=== PATIENT | female | born 1945 ===

== ENCOUNTER 2017-05-19 18:53 | Emergency (ER) | payer MEDICARE, MEDICAID ==
[2017-05-19 19:23] VITALS: BP 127/59; PULSE 85; RESP 16; TEMP 99.7; O2SAT 100
[2017-05-19] MEDS ORDERED: TDAP Vaccine 0.5 mL Syr IM ONE (19:45)
[2017-05-19] MEDS ORDERED: Silver Sulfadiazine 1% CREAM (50 gm) TOP STA (19:45)
--- NOTE | 2017-05-19 19:58 | ED PDOC ---
HPI: General Adult Time Seen by Provider: 05/19/17 19:26 Chief Complaint (Nursing): Upper Extremity Problem/Injury History Per: Patient Additional Complaint(s): Pt. states yesterday she tripped and fell landing on her R shoulder. Pt. states she initially placed ice on the area which improved the pain. She took a percocet and decided to apply heat instead of the ice but fell asleep with the heating pad still on the arm. Pt. woke up this morning with a blister on the R upper arm. Of note, pt. states she popped the blister today and was able to express clear liquid. Denies head injury, neck pain, chest pain, fever, elbow pain, numbness, tingling, LOC, N/V. Against Medical Advice - AMA Patient Left Against Medical Advice: The patient declines admission to the hospital and wishes to leave the Emergency Department. This action is against my medical advice. This decision was made with informed refusal. The patient was told that admission to the hospital is necessary. Explanation of the reasons why were discussed. The risks of leaving were explained to the patient and include, but are not limited to, worsening of known or currently unknown conditions, permanent disability and from undiagnosed or untreated conditions. The patient has the capacity to make this informed decision and understands my explanation of the current medical problem and risks of leaving. The patient voluntarily accepts these risks and signed an AMA form documenting our conversation. The patient was given the opportunity to ask questions and reconsider. The patient was encouraged to return to the Emergency Department at any time for further care. 05/19/17 21:13 Shoulder x-ray: ? non-displaced humerus fx vs. calcific tendinitis; no dislocation Pt. was informed that CT would be required in order to determine extent of injury but pt. refused and states she will f/u with her PMD instead. Pt. was urged to stay in ED for CT but refused even at the recommendation of her daughter. This as done using cigarette tester [id number]. Shoulder sling immobilized in sling. Past Medical History Reviewed: Historical Data, Nursing Documentation, Vital Signs Vital Signs: Last Vital Signs Temp 99.7 F H 05/19/17 19:19 Pulse 85 05/19/17 19:19 Resp 16 05/19/17 19:19 BP 127/59 L 05/19/17 19:19 Pulse Ox 100 05/19/17 20:01 - Medical History PMH: Arthritis, Diabetes, HTN, Hypercholesterolemia - Family History Family History: States: No Known Family Hx - Home Medications Home Medications: Ambulatory Orders Medication Instructions Recorded Silver Sulfadiazine 1% 50 gm 1 appl EXT BID #1 jar 05/19/17 [Silvadene 1% 50 gm] - Allergies Allergies/Adverse Reactions: Allergies Allergy/AdvReac Type Severity Reaction Status Date / Time No Known Allergies Allergy Unverified 08/26/14 15:08 Review of Systems ROS Statement: Except As Marked, All Systems Reviewed And Found Negative Musculoskeletal: Positive for: Shoulder Pain, Arm Pain Physical Exam - Physical Exam Appears: Positive for: Well, Non-toxic, No Acute Distress Head Exam: Positive for: ATRAUMATIC, NORMAL INSPECTION, NORMOCEPHALIC Skin: Positive for: Normal Color, Warm, DRY Cardiovascular/Chest: Positive for: Chest Non Tender Pulses-Radial (L): 2+ Pulses-Radial (R): 2+ Back: Positive for: Normal Inspection. Negative for: L CVA Tenderness, R CVA Tenderness, Vertebral Tenderness Extremity: Positive for: Other (R lateral shoulder tenderness without deformity ; R anterior upper arm ecchymosis with mild tenderness and non-circumferential swelling; R posterior upper arm with non-intact vesicle approximately encomassing 0.5% surface area of arm without surrounding erythema; no R elbow tenderness; FROM actively of R elbow) - ECG O2 Sat by Pulse Oximetry: 100 - Progress ED Course And Treament: Silvadene dressing applied along with non-adherent dressing to burn area. R shoulder and R arm x-ray ordered. Disposition - Clinical Impression Clinical Impression: Shoulder injury, Left against medical advice - Patient ED Disposition Is Patient to be Admitted: No - Disposition Referrals: Bharath Medina MD [Staff Provider] - [facility] [Outside] Disposition: Against Medical Advice Disposition Time: 21:16 Condition: STABLE Additional Instructions: FOLLOW UP WITH DR. MEDINA OR YOUR PMD FOR FURTHER EVALUATION OF BURN AND SHOULDER INJURY TO DETERMINE IF IT IS FRACTURED OR NOT. Prescriptions: Silver Sulfadiazine 1% 50 gm [Silvadene 1% 50 gm] 1 appl EXT BID #1 jar Instructions: Second Degree Burn (ED), Shoulder Pain (ED), Against Medical Advice (ED) Print Language: TAJIK
--- NOTE | 2017-05-20 10:12 | RAD ---
PROCEDURE: Radiographs of the Right Shoulder HISTORY: Trauma COMPARISON: No prior. FINDINGS: BONES: There is an acute nondisplaced impacted fracture in the greater tuberosity of the humerus. 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 . The glenohumeral joint is preserved. SOFT TISSUES: Normal. OTHER FINDINGS: None. IMPRESSION: Acute nondisplaced impacted fracture in the greater tuberosity of the humerus. No dislocation.
--- NOTE | 2017-05-20 13:23 | RAD ---
Right humerus radiographs Indication: Trauma Comparison: Right shoulder radiographs performed 05/19/17 Findings: Osseous demineralization limits evaluation for acute fracture lines. Comminuted fracture deformity of the humeral head. Soft tissue swelling. No evidence of radiopaque foreign body. Right lateral 7th and 8th rib fracture irregularities may be chronic, fracture cannot be excluded. The remainder of the visualized osseous structures appear intact. Impression: Comminuted fracture deformity of the humeral head. Soft tissue swelling. Right 7th and 8th lateral rib fracture irregularities may be chronic, fracture cannot be excluded. Correlate with physical exam. Study has been marked for PA review.
== END 2017-05-19 21:39 | disposition left against medical advice (07) ==
LOC: H.ER 18:53
DX: T22.251A Burn of second degree of right shoulder, initial encounter (principal); X19.XXXA Contact with other heat and hot substances, initial encounter; Y93.9 Activity, unspecified; S49.91XA Unspecified injury of right shoulder and upper arm, initial encounter; W01.0XXA Fall on same level from slipping, tripping and stumbling without subsequent striking against object, initial encounter; I10 Essential (primary) hypertension; E11.9 Type 2 diabetes mellitus without complications